=== PATIENT | female | born 1980 | race Caucasian/White ===

== ENCOUNTER 2018-07-25 05:37 | Day surgery (SDC) | payer MEDICAID ==
[~2018-07-25] VITALS: Ht 157.5 cm; Wt 76.7 kg
[~2018-07-25 05:37] MED LIST: BACI28.43 PO; IBUP-1222 PO; ONDA4TAB10 PO; ONDA4TAB7 PO; OXYC-302 PO
[2018-07-25 06:32] VITALS: BP 94/68
[2018-07-25] MEDS ORDERED: LACTATED RINGERS 1,000 ML IV SCH (06:40)
[2018-07-25] MEDS ORDERED: OFLOXACIN OPHTH 0.3%, 5ML ONE (06:51)
[2018-07-25 07:16] LABS: HCG UR SG 1.024 (1.003-1.030)
[2018-07-25] MEDS ORDERED: FENTANYL PF 100 MCG/2ML ONE (07:17)
[2018-07-25] MEDS ORDERED: MIDAZOLAM 1 MG/ML, 2ML ONE (07:17)
[2018-07-25] MEDS ORDERED: MEPERIDINE/PF 25MG/0.5ML IVPush PRN (07:30)
[2018-07-25] MEDS ORDERED: ACETAMINOPHEN 325 MG TABLET PO PRN (07:30)
[2018-07-25] MEDS ORDERED: MIDAZOLAM 1 MG/ML, 2ML IV PRN (07:30)
[2018-07-25] MEDS ORDERED: HALOPERIDOL 5 MG/ML IV PRN (07:30)
[2018-07-25] MEDS ORDERED: OXYcodone 5 MG/5 ML ORAL.SOL UDC PO PRN (07:30)
[2018-07-25] MEDS ORDERED: ONDANSETRON 2MG/ML, 2ML IV PRN (07:30)
[2018-07-25] MEDS ORDERED: MORPHINE SULFATE 4 MG/ML, 1ML IVPush PRN (07:30)
[2018-07-25] MEDS ORDERED: FENTANYL PF 100 MCG/2ML IV PRN (07:30)
[2018-07-25] MEDS ORDERED: PROPOFOL 10 MG/ML, 20ML ONE (07:51)
[2018-07-25] MEDS ORDERED: ONDANSETRON 2MG/ML, 2ML ONE (07:51)
[2018-07-25] MEDS ORDERED: OXYcodone 5 MG/5 ML ORAL.SOL UDC ONE (08:35)
== END 2018-07-25 10:10 | disposition home or self-care (01) ==
LOC: OUT 05:37
PROVIDERS: ATTEND Specialist
DX: H61.23 Impacted cerumen, bilateral (principal); F17.210 Nicotine dependence, cigarettes, uncomplicated; Z88.8 Allergy status to other drugs, medicaments and biological substances
CPT/HCPCS: 69209; 81025; J2250; J2405; J2704; J3010